=== PATIENT | male | born 1980 | race African-American/Black ===

== ENCOUNTER 2021-10-25 11:31 | Emergency (ER) | payer SELFPAY ==
[2021-10-25 11:49] VITALS: BP 102/65; PULSE 80; RESP 18; TEMP 36.6; O2SAT 100
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
== END 2021-10-25 12:05 | disposition home or self-care (01) ==
PROVIDERS: Emergency Provider Nurse Practitioner Family
DX: K04.7 Periapical abscess without sinus (principal)
CPT/HCPCS: 99203; G0463